=== PATIENT | female | born 1990 | race Caucasian/White ===

== ENCOUNTER → 2018-04-01 13:28 | Outpatient (CLI) | payer SELFPAY ==
--- NOTE | 2018-04-01 13:28 | DT_ITS ---
This patient was seen during an EMR downtime March 25, 2018 - April 01, 2018. This patient may have a combination of paper and electronic documentation or all paper documentation. All documentation is viewable within the e-chart portion of [facility] for each patient visit.
[2018-04-01 16:03] LABS: Hematocrit 42.2 % (37-47); Hemoglobin 13.9 g/dl (12.0-15.0); Mean Corp Hgb Conc 32.9 g/gl (32-36); Mean Corpuscular Hgb 31.7 pg (27.0-32.0); Mean Corpuscular Volume 96.1 fL (81-99); Mean Platelet Vol. 10.9 fl (6.2-12.0); Platelet Count 259 K/mm3 (150-450); RBC Distribution Width CV 12.9 % (11.6-14.6); RBC Distribution Width SD 45.4 fl (35.1-43.9); Red Blood Count 4.39 M/mm3 (4.2-5.4); White Blood Count 4.1 K/mm3 (4.4-11.0)
[2018-04-01 16:07] LABS: Scan Indicated on CBC? Y/N NO
[2018-04-01 16:16] LABS: Vitamin D,25 Hydroxy 36.8 ng/mL (29.95-100.01)
[2018-04-01 16:17] LABS: Anion Gap 8 (5-15); BUN 14 mg/dL (7-18); BUN/Creat Ratio 14.5 RATIO (10-20); Calcium,Total 9.6 mg/dL (8.5-10.1); Chloride 102 mmol/L (98-107); Creatinine, Serum 0.96 mg/dL (0.55-1.02); EST Glomerular Filtration Rate 73 mL/min (>60); Est Glom Filt Rate - Afr Amer 89 mL/min (>60); Glucose 90 mg/dL (74-106); Potassium 3.8 mmol/L (3.5-5.1); Sodium Level 139 mmol/L (136-145); Thyroid Stim Hormone (TSH) 1.02 uIU/mL (0.358-3.74)
== END ==
PROVIDERS: Visit Provider Psychiatry & Neurology Psychiatry
DX: R53.83 Other fatigue (principal)
CPT/HCPCS: 36415; 80048; 82306; 84443; 85027

== ENCOUNTER → 2023-01-10 | Outpatient (CLI) | payer OTHER, SELFPAY ==
[2023-01-10 12:50] LABS: Hemoglobin A1c 5.2 % (3.8-5.6)
[2023-01-10 13:10] LABS: Cholesterol 216 mg/dL (200); Glucose 99 mg/dL (74-106); High Density Lipoprotein 48 mg/dL; Triglycerides 98 mg/dL; Very Low Density Lipoprotein 20 mg/dL (5-40)
== END | disposition home or self-care (01) ==
PROVIDERS: Referring Provider Psychiatry & Neurology Psychiatry; Visit Provider Psychiatry & Neurology Psychiatry
DX: E88.81 Metabolic syndrome and other insulin resistance (principal)
CPT/HCPCS: 36415; 80061; 82947; 83036